=== PATIENT | male | born 1965 | race Caucasian/White ===

== ENCOUNTER → 2018-03-13 | Outpatient (CLI) | payer OTHER | LOC: NEUROMAIN 06:50 | DX: Z53.9 Procedure and treatment not carried out, unspecified reason (principal) ==

== ENCOUNTER → 2020-12-28 | Outpatient (CLI) | payer OTHER ==
--- NOTE | 2020-12-28 15:15 | CT ---
EXAMINATION TYPE: CT soft tissue neck w con DATE OF EXAM: 12/28/2020 HISTORY: submandibular gland swelling COMPARISON: NONE CT DLP: 487 mGycm. Automated Exposure Control for Dose Reduction was Utilized. TECHNIQUE: CT scan of the neck is performed with IV Contrast, patient injected with 100 mL of Isovue 300, axial images are obtained, coronal and sagittal reformatted images are reviewed. FINDINGS: Airway: Slight fullness of the adenoid tonsils in the posterior nasopharynx and the palatine tonsils. Abnormal heterogeneous lingual tonsil and base of tongue filling the vallecula. Hypopharyngeal airwa y is patent. Thyroid gland is within normal limits. Visualized lung apices are only partially imaged. Parotid/submandibular glands: Parotid glands are symmetric and slightly prominent with visualized gerald ateral ducts, left larger than right. No significant surrounding fat stranding seen bilaterally. No o bstructing calculus clearly seen. Parotid glands symmetric and thought within normal limits. Carotid/Vascular Structures: No significant abnormality. Osseous Structures: Mild disc space narrowing and spurring C5-C6 level. Other: Some prominent but subcentimeter lymph nodes throughout the neck bilaterally. No definitive gr eater than 1 cm neck adenopathy. For reference left submandibular 1.3 x 0.9 cm lymph node axial image 52 ParaPharyngeal fat spaces are maintained bilaterally. IMPRESSION: Symmetric bilateral tonsillar prominence causing narrowing of the nasopharyngeal and orop haryngeal airways. Some reactive neck adenopathy is thought present. Submandibular glands are symmetr ic and slightly enlarged in size with visualized slightly dilated ducts but no obstructing calculi or significant surrounding fat stranding. Consider direct visualization if symptoms do not resolve if i t has not been performed.
== END | disposition home or self-care (01) ==
LOC: RADCTMAIN 13:53
PROVIDERS: ATTEND Otolaryngology
DX: K11.8 Other diseases of salivary glands (principal)
CPT/HCPCS: 70491; Q9967

== ENCOUNTER → 2022-11-29 | Outpatient (CLI) | payer OTHER, BC ==
[2022-11-29 15:30] LABS: Ionized Calcium 5.2 mg/dL (4.5-5.3)
== END | disposition home or self-care (01) ==
LOC: LABWHC1 14:32
PROVIDERS: ATTEND Otolaryngology
DX: K11.22 Acute recurrent sialoadenitis (principal)
CPT/HCPCS: 36415; 82150; 82330; 86235

== ENCOUNTER → 2022-12-27 | Outpatient (CLI) | payer OTHER, BC ==
--- NOTE | 2022-12-27 15:34 | FL ---
EXAMINATION TYPE: FL sialography DATE OF EXAM: 12/27/2022 COMPARISON: None HISTORY: Left sided recurrent sialoadenitis TECHNIQUE: The procedure was explained to the patient, there is complications. All questions are answ ered. Written and verbal informed consent was obtained. A timeout was performed. The left submandibular duct was accessed. Under fluoroscopic observation contrast was injected. Multi ple images were obtained. Post procedure image was obtained. Patient was given ligaments to encourage salivation. Discharge instructions were discussed with the patient. Patient was released in stable c ondition having tolerated the procedure well. FINDINGS: Submandibular duct is smooth without focal stenosis to the salivary gland. Salivary gland f ills easily with a normal branching pattern. The proximal branches are somewhat prominent. Following removal of the catheter there is prompt drainage. Drainage is incompletely and patient was encouraged with billy to continuous salivation. No filling defects are identified. A focal stenosis is not vijay ntified. IMPRESSION: 1. The proximal left submandibular ducts are dilated with more normal-appearing peripheral left subm andibular ducts within the gland. A focal stenosis is not identified. The left submandibular salivary duct is patent without focal stenosis or suspicious dilatation.
== END | disposition home or self-care (01) ==
LOC: RADUSWWP 12:39
PROVIDERS: ATTEND Otolaryngology
DX: K11.22 Acute recurrent sialoadenitis (principal); K11.8 Other diseases of salivary glands
CPT/HCPCS: 70390; Q9967

== ENCOUNTER → 2023-11-06 | Outpatient (CLI) | payer OTHER, BC ==
[2023-11-06 15:53] LABS: HGB 15.9 g/dL (13.0-17.0); MCH 31.1 pg (27.0-32.0); MCHC 33.1 g/dL (32.0-37.0); MCV 93.8 FL (80.0-97.0); Mean Platelet Volume 10.3 FL (9.5-12.2); NRBC Per 100 WBC 0 X 10*3/uL (0.00-0.01); Platelet Count 228 X 10*3/uL (140-440); RBC 5.12 X 10*6/uL (4.40-5.60); RDW 12.6 % (11.5-14.5); WBC 4.75 X 10*3/uL (4.50-10.00)
[2023-11-06 16:36] LABS: ALT 22 U/L (10-49); AST 21 U/L (14-35); Albumin 4.4 g/dL (3.8-4.9); Albumin/Globulin Ratio 1.76 Ratio (1.60-3.17); Alkaline Phosphatase 96 U/L (41-126); Blood Urea Nitrogen 14.2 mg/dL (9.0-27.0); Calcium 9.6 mg/dL (8.7-10.3); Carbon Dioxide 27.3 mmol/L (21.6-31.8); Chloride 105 mmol/L (96-109); Chol/HDL Ratio 5.82 Ratio; Globulin 2.5 g/dL (1.6-3.3); Glucose 103 mg/dL (70-110); LDL Cholesterol,Calculated 164.1 mg/dL (0.0-131.0); Potassium 4.6 mmol/L (3.5-5.5); Sodium 141 mmol/L (135-145); Total Bilirubin 0.4 mg/dL (0.3-1.2); Total Protein 6.9 g/dL (6.2-8.2)
[2023-11-06 16:48] LABS: Appearance,Urine Clear (Clear); Bilirubin,Urine Negative (Negative); Blood,Urine Negative (Negative); Color,Urine Yellow (Yellow); Ketones,Urine Negative (Negative); Nitrite,Urine Negative (Negative); Specific Gravity,Urine 1.023 (1.001-1.030); Urobilinogen,Urine 0.2 E.U./DL
== END | disposition home or self-care (01) ==
LOC: LABWHC1 08:18
PROVIDERS: ATTEND Family Medicine
DX: Z00.00 Encounter for general adult medical examination without abnormal findings (principal)
CPT/HCPCS: 36415; 80053; 80061; 81003; 82306; 83036; 84153; 84443; 85027

== ENCOUNTER → 2023-11-09 | Outpatient (CLI) | payer OTHER, BC ==
--- NOTE | 2023-11-09 12:45 | CTL ---
EXAMINATION TYPE: CT Low Dose Lung DATE OF EXAM ORDERED: 11/09/2023 HISTORY: Nicotine dependence, 20 pack per history, currently smoking. Lung cancer screening CT DLP: 118.[address] CTDI: 2.9 mGy Automated exposure control for dose reduction was used. SCREENING VISIT: First screening visit COMPARISON: None TECHNIQUE: Low dose computed tomography scan was performed through the chest at 1 mm thick sections a nd reconstructed images in multiple planes at 1 mm and [address] DIAGNOSTIC QUALITY: Satisfactory FINDINGS: Nodules: 1.1 cm intrafissural lymph node along the right minor fissure (series 6 image 34). No other clinicall y significant pulmonary nodules. LUNGS: COPD: Severity: None Fibrosis: Severity: None Lymph nodes: None Other findings: None RIGHT PLEURAL SPACE: Effusion: None Calcification: None Thickening: None Pneumothorax: None LEFT PLEURAL SPACE: Effusion: None Calcification: None Thickening: None Pneumothorax: None HEART: Heart Size: Normal Coronary Calcification: MILD Pericardial Effusion: None OTHER FINDINGS: Upper abdomen: None Bony thorax: Schmorl's node involving the superior endplate of the T11 vertebral body. Supraclavicular region: None Other: None IMPRESSION: No clinically significant pulmonary nodules. CT LUNG RAD AND CT CHEST RECOMMENDATION: Lung-Rad 1 Negative: Continue annual screening with LDCT in 12 months. S Modifier (other clinically significant findings): None
== END | disposition home or self-care (01) ==
LOC: RADCTMAIN 06:06
PROVIDERS: ATTEND Family Medicine
DX: Z12.2 Encounter for screening for malignant neoplasm of respiratory organs (principal); F17.210 Nicotine dependence, cigarettes, uncomplicated
CPT/HCPCS: 71271

== ENCOUNTER 2024-01-09 07:21 | Day surgery (SDC) | payer OTHER, BC ==
[2024-01-07 15:23] VITALS: BMI 26.3
[2024-01-09 07:56] VITALS: TEMP 97.4
[2024-01-09] MEDS: LACTATED RINGERS 1,000 ML IV SCH (08:08)
[2024-01-09] MEDS: IV FLUID CONTINUATION 1,000 ML IV ONE (08:08)
[2024-01-09] MEDS ORDERED: PROPOFOL 10 MG/ML 20 ML VIAL IV ONE (08:42)
[2024-01-09] MEDS ORDERED: LIDOCAINE 1% INJ 10MG/ML (20 ML MDV) ONE (08:42)
--- NOTE | 2024-01-09 09:09 | P.PCN ---
Date of Procedure: 01/09/24 Procedure(s) Performed: BRIEF HISTORY: Patient is a 58-year-old pleasant white male scheduled for an elective colonoscopy as a part of evaluation by history of colon polyps. Last colonoscopy was 5 years ago. PROCEDURE PERFORMED: Colonoscopy with polypectomy. PREOPERATIVE DIAGNOSIS: History of colon polyps. IV sedation per Anesthesia. PROCEDURE: After informed consent was obtained, the patient, was brought into the endoscopy unit. IV sedation was administered by Anesthesia under continuous monitoring. Digital rectal examination was normal. Initially the Olympus CF-160 flexible video colonoscope was then inserted in the rectum, gradually advanced into the cecum without any difficulty. Careful examination was performed as the scope was gradually being withdrawn. Ileocecal valve and the appendiceal orifice were visualized and appeared normal. Prep was excellent. Mucosa of the cecum, ascending colon, normal. The transverse colon there was a 4 mm sessile polyp removed by cold snare polypectomy. Rest of the transverse colon, descending colon, sigmoid colon, and rectum appeared normal. Retroflexion was performed in the rectum and small internal hemorrhoids were seen. Scattered sigmoid diverticulosis the patient tolerated the procedure well. IMPRESSION: 4 mm transverse colon polyp status post cold snare polypectomy Scattered sigmoid diverticulosis Small internal hemorrhoids RECOMMENDATIONS: Findings of this examination were discussed with the patient as well as his family. He was advised to follow-up with the biopsy results. If the biopsy reveals adenoma he can have repeat colonoscopy in 5 years..
[2024-01-09 10:10] VITALS: BP 105/72; PULSE 54; RESP 16
== END 2024-01-09 10:05 | disposition home or self-care (01) ==
LOC: ORWHC2ENDO 07:21
PROVIDERS: ATTEND Internal Medicine Gastroenterology
DX: D12.7 Benign neoplasm of rectosigmoid junction
CPT/HCPCS: 45385; 88305